=== PATIENT | female | born 1980 | race Caucasian/White ===

== ENCOUNTER 2018-12-23 11:24 | Emergency (ER) | payer MEDICAID, OTHER, SELFPAY ==
[~2018-12-23] VITALS: Ht 188 cm; Wt 64.6 kg
[2018-12-23 11:28] VITALS: BP 119/88
--- NOTE | 2018-12-23 12:06 | NUR ---
PT HERE FOR HELP W NARCOTIC ABUSE.
--- NOTE | 2018-12-23 12:06 | NUR ---
Patient/Caregiver given discharge instructions and they have confirmed that they understand the instructions. Patient ambulatory with steady gait.
== END 2018-12-23 12:21 | disposition home or self-care (01) ==
LOC: ED 12:08
DX: F11.23 Opioid dependence with withdrawal (principal); F41.9 Anxiety disorder, unspecified
CPT/HCPCS: 99283